=== PATIENT | male | born 2000 | race Hispanic/Latino ===

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

== ENCOUNTER 2023-08-20 04:47 | Emergency (ER) | payer SELFPAY ==
[2023-08-20] MEDS ORDERED: Ketorolac Tromethamine 30 MG/ML VIAL ONE (05:13)
[2023-08-20] MEDS ORDERED: Bupivacaine 0.25% 10 ML VIAL ONE (05:13)
[2023-08-20] MEDS ORDERED: Bupivacaine PF 0.5% 30 ML VIAL ONE (05:15)
== END 2023-08-20 06:38 | disposition home or self-care (01) ==
LOC: ERS 04:47
DX: S43.015A Anterior dislocation of left humerus, initial encounter (principal); W10.8XXA Fall (on) (from) other stairs and steps, initial encounter
CPT/HCPCS: 23650; 96372; J1885; S0020